=== PATIENT | male | born 1950 | race Caucasian/White ===

== ENCOUNTER 2018-05-19 21:53 | Emergency (ER) | payer MEDICARE, BC ==
[~2018-05-19] VITALS: Ht 180.3 cm; Wt 104.3 kg
[~2018-05-19 21:53] MED LIST: BENICAR; CALAN; KEFLEX500 MG PO; SEREVENT DISKU50 MCG INH; ZYLOPRIM300 MG PO
[2018-05-19] MEDS ORDERED: HYDRALAZINE HC100 MG PO (22:06)
[2018-05-19] MEDS ORDERED: OLMESARTAN MEDO40 MG PO (22:07)
[2018-05-19] MEDS ORDERED: SINGULAIR 10 MG10 M1 PO (22:08)
[2018-05-19] MEDS ORDERED: PREDNISONE 5 MG5 M1 PO (22:09)
[2018-05-19] MEDS ORDERED: POTASSIUM20 PO (22:09)
[2018-05-19] MEDS ORDERED: ADVAIR 250-501 EACH INH (22:09)
[2018-05-19] MEDS ORDERED: CLONIDINE HCL0.3 M3 PO (22:10)
[2018-05-19] MEDS ORDERED: TORSEMIDE100 MG PO (22:10)
[2018-05-19] MEDS ORDERED: OCUFLOX5 ML OPHTHALMIC (22:43)
[2018-05-19 22:55] VITALS: BP 136/63
== END 2018-05-19 22:57 | disposition home or self-care (01) ==
LOC: M.ERS 21:53
DX: H10.33 Unspecified acute conjunctivitis, bilateral (principal); Z96.642 Presence of left artificial hip joint; Z88.8 Allergy status to other drugs, medicaments and biological substances